=== PATIENT | male | born 1955 | race Caucasian/White ===

== ENCOUNTER 2024-03-03 20:19 | Emergency (ER) | payer OTHER, SELFPAY ==
[2024-03-03] VITALS (24 sets, daily range): BP systolic 118–147; BP diastolic 61–71; PULSE 57–78; RESP 12–28; TEMP 37.3; O2SAT 82–100
[2024-03-03 21:48] LABS: Abs Immature Grans 0.03 10^3/uL (0.0-0.06); Absolute Basophil Count 0.03 10^3/uL (0.0-0.2); Absolute Eosinophil Count 0.12 10^3/uL (0.0-0.7); Absolute Lymphocyte Count 1.05 10^3/uL (1.2-3.4); Basophils % 0.3 %; Eosinophils % 1.3 %; HCT 42.2 % (40.0-50.0); HGB 14.6 g/dL (13.5-17.5); Immature Grans % 0.3 %; Lymphocytes % 11.5 %; MCH 30.5 pg (27.0-33.0); MCHC 34.6 % (32.0-36.0); MCV 88 fL (80-95); MPV 9.8 fL (8.0-11.0); Monocytes % 7.7 %; Neutrophils % 78.9 %; Platelet Count 192 10^3/uL (130-400); RBC 4.79 10^6/uL (4.36-5.78); RDW 12.7 % (11.8-14.1); RDW-SD 41.3 fL; WBC 9.13 10^3/uL (4.4-10.8)
[2024-03-03 22:02] LABS: Anion Gap 9.9 mmol/L (3-11); BUN 17 mg/dL (7-18); CO2 27.1 mmol/L (21.0-32.0); CREATININE 0.8 mg/dL (0.70-1.30); Calcium 8.7 mg/dL (8.5-10.1); Chloride 104 mmol/L (98-107); Glucose 117 mg/dL (74-106); Potassium 3.9 mmol/L (3.5-5.1); Sodium 141 mmol/L (136-145)
--- NOTE | 2024-03-03 22:15 | ED.GENADUL_ITS ---
Discharge Plan Disposition Patient Disposition: Home Discharge Details Clinical Impression: Surgical site infection Primary Care Provider: Doug Ibanez ED Provider: Pinky Moss Home Meds and New Rx's Prescriptions: Continued aspirin 325 MG tablet 325 mg PO QAM clonazepam 1 MG tablet 1 mg PO QID Hold Instructions: patient was weaned off medication atenolol [Tenormin] 25 MG tablet 25 mg PO BID simvastatin 40 MG tablet 40 mg PO QAM multivitamin 1 EACH capsule 1 tab PO QAM Refresh Optive Advanced 10 ML drops ONCE PRN alprazolam [Xanax] 0.25 mg tablet 0.25 mg PO BID-TID PRN Discharge Instructions Additional Instructions: Please follow-up with your doctor as scheduled on . I have prescribed an antibiotic called cephalexin. Please take the full course as prescribed. Return to emergency care if you develop fevers after 48 hours of antibiotics, worsening redness/swelling/pain to the surgical site, body aches, or if you are very worried and need to be rechecked again immediately HPI General Date/Time Provider Initiated Documentation: 03/03/24 20:40 . HPI Narrative: Ezio is a 68-year-old male with history of PTSD with dissociative episodes and hyperlipidemia who presents to the emergency department today for evaluation of fever. He reports that this afternoon he came inside for few hours after being outside all morning/early afternoon. He had shaking chills and was noted to have a slightly elevated temperature of 99 degrees. He was given 2 extra strength Tylenol. He had a dissociative episode (normal presentation for him with return to normal cognition afterwards), followed by fever of 102 temporal. He denies recent illness such as headache, congestion, sore throat, ear pain, cough, chest pain, shortness of breath, nausea/vomiting, abdominal pain, change in bowel or bladder function, dysuria. He did have a lipoma removed from his left chest wall on March 14 at the OR. Today they noticed it was reddened and warm, which he initially attributed to being outside. Denies immunocompromise or diabetes. NO recent hospitalizations. Physical exam remarkable for erythema and warmth surrounding approximately 10 cm incision on left anterior chest wall. No tenderness to palpation. No drainage from surgical incision. Edges are well-approximated. Patient is well- appearing, in no acute distress. Easy work of breathing, lung sounds clear bilaterally. Normal heart sounds. Abdomen soft, nondistended, nontender to palpation. Normal gait. Moving all extremities equally. DDx includes but is not limited to surgical site infection, occult infection horton ch as UTI or pneumonia. I independently interpreted the following tests: CBC and BMP all reassuring. CRP slightly elevated at 0.60. While in the emergency department patient was started on cephalexin for surgical site infection. As patient is otherwise well-appearing, no red flags concerning for serious systemic illness at this time requiring inpatient management. Handoff report given to Dr. Harrington, lara attending. Related Data Home Medications Medication Instructions Recorded Confirmed aspirin 325 mg tablet 325 mg PO QAM 02/24/15 03/03/24 atenolol 25 mg tablet (Tenormin) 25 mg PO BID 02/24/15 03/03/24 [id number] ONCE PRN 02/24/15 02/24/15 80 0.5 %-1 %-0.5 % eye drops (Refresh Optive Advanced) clonazepam 1 mg tablet 1 mg PO QID 02/24/15 03/03/24 multivitamin 1 tab PO QAM 02/24/15 03/03/24 simvastatin 40 mg tablet 40 mg PO QAM 02/24/15 03/03/24 alprazolam 0.25 mg tablet (Xanax) 0.25 mg PO BID-TID PRN 03/03/24 03/03/24 Allergies Allergy/AdvReac Type Severity Reaction Status Date / Time onions AdvReac Severe rash, sores Uncoded 03/03/24 21:15 strawberries AdvReac Intermediate sores Uncoded 03/03/24 21:15 General Stated Complaint: GenMedical DOM: 3 Review of Systems Narrative: see HPI Exam Const General: cooperative, healthy appearing, comfortable and no acute distress Nutritional Appearance: average body habitus Chest Chest: other (10 cm surgical incision with surrounding erythema and warmth) Resp Effort & Inspection: normal respiratory effort and able to speak in complete sentences Auscultation: clear to auscultation bilaterally Cardio Rate: regular rate Rhythm: regular rhythm GI Inspection: normal to inspection and non-distended Palpation: soft and nontender Neuro General: gait normal, tone normal, moves all extremities and no focal motor deficits Cognition: normal cognition Course Vital Signs Vital signs: Vital Signs Temperature 37.3 C 03/03/24 20:29 Pulse 78 03/03/24 20:29 Respiratory Rate 16 03/03/24 20:29 Blood Pressure 147/71 H 03/03/24 20:29 Pulse Oximetry 98 03/03/24 20:29 Temperature 37.3 C 03/03/24 20:29 Pulse 78 03/03/24 20:29 Respiratory Rate 16 03/03/24 20:29 Respiratory Effort Normal, Non-Labored 03/03/24 21:06 Respiratory Depth Normal 03/03/24 21:06 Respiratory Pattern Normal 03/03/24 21:06 Blood Pressure 147/71 H 03/03/24 20:29 Pulse Oximetry 98 03/03/24 20:29 Pain Level 0 03/03/24 20:29 Lab/Test Results Lab/Test Results: Laboratory Tests Range/Units 03/03/24 21:40 WBC (4.4-10.8) 10^3/uL 9.13 RBC (4.36-5.78) 10^6/uL 4.79 Hgb (13.5-17.5) g/dL 14.6 Hct (40.0-50.0) % 42.2 MCV (80-95) fL 88 MCH (27.0-33.0) pg 30.5 MCHC (32.0-36.0) % 34.6 RDW (11.8-14.1) % 12.7 Plt Count (130-400) 10^3/uL 192 MPV (8.0-11.0) fL 9.8 Immature Gran % % 0.3 Neutrophils % % 78.9 Lymphocytes % % 11.5 Monocytes % % 7.7 Eosinophils % % 1.3 Basophils % % 0.3 Nucleated RBC % (0.0-0.3) % 0.0 Absolute Neutrophils (1.2-6.7) 10^3/uL 7.20 H Absolute Lymphocytes (1.2-3.4) 10^3/uL 1.05 L Absolute Monocytes (0.1-0.8) 10^3/uL 0.70 Absolute Eosinophils (0.0-0.7) 10^3/uL 0.12 Absolute Basophils (0.0-0.2) 10^3/uL 0.03 Sodium (136-145) mmol/L 141 Potassium (3.5-5.1) mmol/L 3.9 Chloride (98-107) mmol/L 104 Carbon Dioxide (21.0-32.0) mmol/L 27.1 Anion Gap (3-11) mmol/L 9.9 BUN (7-18) mg/dL 17 Creatinine (0.70-1.30) mg/dL 0.8 Est GFR (CKD-EPI 2020) (mL/min/1.73m2) 97.00 Glucose (74-106) mg/dL 117 H Calcium (8.5-10.1) mg/dL 8.7 C-Reactive Protein (<or=0.5) mg/dL 0.60 H Medical Decision Making Quality:SDOH Health Related Social Needs: No Data to Display PFSH All Active Problems (Updated 03/03/24 @ 23:36 by Pinky Laguerre) Surgical site infection (Acute) Social History Smoking/Tobacco Use Status: Former Tobacco Use Smoking risk assessment performed?: Yes Drug use: Never Housing: house
--- NOTE | 2024-03-03 23:00 | DI.RAD_ITS ---
Exam(s) XR CHEST 2V PA LATERAL EXAM: XR CHEST 2V PA LATERAL CLINICAL HISTORY: fever TECHNIQUE: 2D digital imaging was performed. Two views. COMPARISON: CR CHEST 2 VIEWS PA,LAT from 02/24/2015 FINDINGS: Leads overlie the chest. HEART: Normal size. Aorta: Not dilated. PULMONARY VASCULATURE: Normal. MEDIASTINUM: Unremarkable. LUNGS: Clear. PLEURAL SPACE: No pleural effusion or pneumothorax. BONE:Unremarkable degenerative changes in the spine. Mild scoliosis. SOFT TISSUES: Unremarkable. IMPRESSION: No acute abnormality. DATA REPOSITORY: RADIATION DOSE DELIVERED:
[2024-03-03 23:45] LABS: Bilirubin Negative (Negative); Blood Negative (Negative); Clarity Clear (Clear); Glucose Negative (Negative); Ketones Negative (Negative); Leukocyte Esterase Negative (Negative); Nitrite Negative (Negative); Urobilinogen 0.2 mg/dL (Up to 0.2); pH 5.5 (5-8)
[2024-03-03] MEDS: Cephalexin 250 MG CAP 500 MG PO (23:53)
--- NOTE | 2024-03-03 23:59 | NUR.NOTE ---
referral to PCP Doug Ibanez at the [facility] for surgical site infection. recommended within 1-2 weeks Nursing Note:
[2024-03-04 00:09] VITALS: BP 117/65; PULSE 62; PULSE 65; RESP 12; RESP 13; TEMP 37.1; O2SAT 97; O2SAT 98
--- NOTE | 2024-03-04 00:51 | DI.VRAD_ITS ---
PROCEDURE INFORMATION: Exam: XR Chest Exam date and time: 03/03/2024 11:41 PM Age: 68 years old Clinical indication: Fever TECHNIQUE: Imaging protocol: Radiologic exam of the chest. Views: 2 views. COMPARISON: No relevant prior studies available. FINDINGS: Lungs: Unremarkable. No consolidation. Pleural spaces: Unremarkable. No pleural effusion. No pneumothorax. Heart/Mediastinum: Unremarkable. No cardiomegaly. Bones/joints: Unremarkable. IMPRESSION: No evidence for acute abnormality in the chest. Dictated and Authenticated by: Isabel Mitchell MD. Ordering:JEWEL Vance MD
--- NOTE | 2024-03-04 04:32 | NUR.NOTE ---
[facility].Nursing Note:
== END 2024-03-04 00:19 | disposition home or self-care (01) ==
PROVIDERS: Nurse Practitioner Family; Emergency Provider Emergency Medicine; PCP Internal Medicine Geriatric Medicine
DX: R50.9 Fever, unspecified (principal); T81.49XA Infection following a procedure, other surgical site, initial encounter
CPT/HCPCS: 80048; 99283; 71046; 81003; 85025; 86140

== ENCOUNTER 2025-05-11 13:51 | Emergency (ER) | payer OTHER, SELFPAY ==
[2025-05-11 13:57] VITALS: BP 132/85; PULSE 60; RESP 16; TEMP 36.2; O2SAT 97
--- NOTE | 2025-05-11 14:09 | W.ED.GENAD ---
Discharge Plan Disposition Patient Disposition: Home Condition: Stable Discharge Details Clinical Impression: Fall, Contusion of hip, left, Lumbar contusion, Blunt head trauma Primary Care Provider: Doug Ibanez ED Provider: Gagan Friedman Home Meds and New Rx's Prescriptions: Continued aspirin 325 MG tablet 325 mg PO QAM clonazepam 1 MG tablet 1 mg PO QID atenolol [Tenormin] 25 MG tablet 25 mg PO BID simvastatin 40 MG tablet 40 mg PO QAM multivitamin 1 EACH capsule 1 tab PO QAM Refresh Optive Advanced 10 ML drops ONCE PRN alprazolam [Xanax] 0.25 mg tablet 0.25 mg PO BID-TID PRN No Action cephalexin 500 mg capsule 500 mg PO TID Qty: 20 0RF Discharge Instructions Additional Instructions: Your CAT scans did not show any broken bones or other concerning findings at this time. Bone contusions can take a few weeks to fully heal. If you are not improving follow-up with your primary care provider. If you feel significantly more ill or have new symptoms such as severe abdominal pain return to the emergency department for reevaluation. HPI General Date/Time Provider Initiated Documentation: 05/11/25 14:02. Limitations to Documentation: no limitations. Information obtained by: patient. History of Present Illness 70 year old M presents to the emergency department with the chief complaint of fall, head/lowerback/left hip pain, described as moderate, Quality is described as aching, and is localized to the head and back. Patient started experiencing this hour(s) (3) and it has been constant. No relieving factors improve symptom(s), No exacerbating factors reported . Patient notes no other symptoms.. Related Data Home Medications ?Medication ?Instructions ?Recorded ?Confirmed aspirin 325 mg tablet 325 mg PO QAM 02/24/15 05/11/25 atenolol 25 mg tablet (Tenormin) 25 mg PO BID 02/24/15 05/11/25 [id number]-dyhejrri-[id number] ONCE PRN 02/24/15 02/24/15 80 0.5 %-1 %-0.5 % eye drops (Refresh Optive Advanced) clonazepam 1 mg tablet 1 mg PO QID 02/24/15 05/11/25 multivitamin 1 tab PO QAM 02/24/15 05/11/25 simvastatin 40 mg tablet 40 mg PO QAM 02/24/15 05/11/25 alprazolam 0.25 mg tablet (Xanax) 0.25 mg PO BID-TID PRN 03/03/24 05/11/25 cephalexin 500 mg capsule 500 mg PO TID #20 caps 03/03/24 05/11/25 Previous Rx's ?Medication ?Instructions ?Recorded cephalexin 500 mg capsule 500 mg PO TID #20 caps 03/03/24 Allergies Allergy/AdvReac Type Severity Reaction Status Date / Time onions AdvReac Severe rash, sores Uncoded 05/11/25 14:01 strawberries AdvReac Intermediate sores Uncoded 05/11/25 14:01 General Stated Complaint: Trauma DOM: 3 Review of Systems All systems reviewed & are unremarkable except as noted in HPI and below Constitutional Constitutional: Denies chills, Denies fever(s) and Denies weakness Cardiovascular Cardiovascular: Denies chest pain and Denies dyspnea Respiratory Respiratory: Denies cough and Denies dyspnea Gastrointestinal Gastrointestinal: Denies abdominal pain, Denies nausea and Denies vomiting Neurologic Neurologic: Denies weakness Exam Const General: no acute distress Orientation: alert [facility] Head: no palpable skull fracture and signs of trauma Ears: external ears normal General nose exam: external nose normal Mouth: moist mucous membranes Eyes General: appearance normal, both eyes and all related structures Neck Neck: normal visual inspection and nontender Chest Chest: no tenderness Resp Effort & Inspection: normal respiratory effort and able to speak in complete sentences Cardio Rate: regular rate GI Palpation: soft and nontender Back/Spine/Pelvis Back: no CVA tenderness Thoracic/Lumbar Spine: No thoracic spinal tenderness and lumbar spinal tenderness Skin General skin exam: no rashes or lesions noted Neuro General: patient alert and patient oriented x3 Extrem General: full ROM Psych Mental Status: mental status grossly normal Course Vital Signs Vital signs: Vital Signs Temperature 36.2 C L 05/11/25 13:57 Pulse 60 05/11/25 13:57 Respiratory Rate 16 05/11/25 13:57 Blood Pressure 132/85 05/11/25 13:57 Pulse Oximetry 97 05/11/25 13:57 Temperature 36.2 C L 05/11/25 13:57 Pulse 60 05/11/25 13:57 Respiratory Rate 16 05/11/25 13:57 Blood Pressure 132/85 05/11/25 13:57 Pulse Oximetry 97 05/11/25 13:57 Oxygen Delivery Method Room Air 05/11/25 13:57 Oxygen Flow Rate 0 05/11/25 13:57 Medical Decision Making 70-year-old male comes in after a fall around 11 AM this morning. He says he was on some stairs in his garage when one of the steps moved causing him to fall back and hit his head on the sidewall and fall landing on his back approximately 6 feet. He has not had any vomiting, no chest pain or difficulty breathing. Denies any preceding symptoms to the fall such as dizziness or lightheadedness. He has a scalp hematoma in the posterior part of his head, no other signs of trauma to the head, GCS of 15 on arrival. He has no neck tenderness, no thoracic spine tenderness, he is tender over L4 and L5 with no visible palpable deformities. He also notes a left hip pain and when the left hip is palpated he has tenderness. He is able to fully range the hip. no other pain in his extremities. No chest or abdomen tenderness. Given his age and the fall and will obtain a CT head and C-spine as well as a CT pelvis lumbar spine. Patient stable, all CAT scans on my read and also radiology read shows no acute findings. He has no new pain elsewhere. Suspect bone contusions and a scalp hematoma. He is stable for discharge and will follow-up with his PCP if needed and return precautions given Differential Diagnosis Differential Diagnosis: Fracture, contusion, TBI [facility] All Active Problems (Updated 05/11/25 @ 15:39 by Gagan Friedman MD) Blunt head trauma (Acute) Lumbar contusion (Acute) Contusion of hip, left (Acute) Fall (Acute) Social History Smoking/Tobacco Use Status: Former Tobacco Use Smoking risk assessment performed?: Yes Drug use: Never Housing: house
[2025-05-11] MEDS: Acetaminophen 500 MG TAB 1000 MG PO (14:18)
--- NOTE | 2025-05-11 14:30 | DI.CT_ITS ---
Exam(s) CT LUMBAR SPINE WO EXAM: CT LUMBAR SPINE WO CLINICAL HISTORY: lower back pain s/p fall. TECHNIQUE: Imaging Protocol: Axial computed tomography images with coronal and sagittal reformatted images were created and reviewed. COMPARISON: No exams were available for comparison FINDINGS: Bones: No fractures or dislocations are seen. The alignment of the spine is normal including the thoracolumbar junction. Age-appropriate degenerative changes are present throughout the lumbar spine. Soft tissues: The soft tissues of the visualized abdomen and chest are unremarkable. No large disk herniations are identified. IMPRESSION: No acute fracture or subluxation in the lumbar spine. RADIATION DOSE DELIVERED: Total DLP Total DLP DATA REPOSITORY: All CT scans at this facility are submitted to the National Radiology Data Registry (NRDR) Dose Index Registry (DIR) with the [employer] ([employer]). RADIATION OPTIMIZATION: All CT scans at this facility use at least one of these dose optimization techniques: automated exposure control; mA and/or kV adjustment per patient size (includes targeted exams where dose is matched to clinical indication); or iterative reconstruction.
--- NOTE | 2025-05-11 14:35 | DI.CT_ITS ---
Exam(s) CT HEAD CERVICAL SPINE WO EXAM: CT HEAD CERVICAL SPINE WO CLINICAL HISTORY: pain s/p fall. TECHNIQUE: Imaging Protocol: Axial computed tomography images with coronal and sagittal reformatted images were created and reviewed COMPARISON: No exams were available for comparison FINDINGS: Head CT Ventricles and Extra axial spaces: Normal in size and morphology for the patient's age. Hemorrhage: None. Cerebral parenchyma: No evidence of mass or acute infarct. Midline shift: None. Brainstem/Cerebellum: Normal. Calvarium: Normal. Visualized Paranasal sinuses/Mastoids: Clear. Soft tissues: Unremarkable. Cervical Spine CT BONES: Vertebral body heights are maintained. Alignment is normal. There is no evidence of acute fracture. Mild degenerative disc changes and facet degenerative changes are seen . SOFT TISSUES: No paraspinal hematoma. The airway appears intact. No pneumothorax is seen at the lung apices. IMPRESSION: Head CT: No acute abnormality. C-spine CT: Mild degenerative changes, no acute abnormality. RADIATION DOSE DELIVERED: 1,327.46mGy.cm Total DLP DATA REPOSITORY: All CT scans at this facility are submitted to the National Radiology Data Registry (NRDR) Dose Index Registry (DIR) with the [employer] (ACR). RADIATION OPTIMIZATION: All CT scans at this facility use at least one of these dose optimization techniques: automated exposure control; mA and/or kV adjustment per patient size (includes targeted exams where dose is matched to clinical indication); or iterative reconstruction.
--- NOTE | 2025-05-11 14:40 | DI.CT_ITS ---
Exam(s) CT PELVIC WO EXAM: CT PELVIC WO CLINICAL HISTORY: left sided hip pain s/p fall. TECHNIQUE: Imaging Protocol: Axial computed tomography images with coronal and sagittal reformatted images were created and reviewed. COMPARISON: CT CT LUMBAR SPINE WO from 05/11/2025 FINDINGS: Bones: The osseous structures and articular surfaces are intact. Bony alignment is satisfactory. No cellulitic or osteomyelitic changes are identified. There are degenerative changes seen in the lower lumbar spine in the hips bilaterally. No lytic or sclerotic lesions are identified. Soft Tissues: The bowel is unremarkable. There is a normal appendix. The urinary bladder is unremarkable as is the prostate gland. There are small fat containing bilateral inguinal hernias. Atherosclerotic calcification is seen IMPRESSION: There is no acute fracture or dislocation. If there is continued concern for an occult fracture, an MRI may be obtained for further evaluation. RADIATION DOSE DELIVERED: 1,813.52mGy.cm Total DLP 1,813.52mGy.cmTotal DLP DATA REPOSITORY: All CT scans at this facility are submitted to the National Radiology Data Registry (NRDR) Dose Index Registry (DIR) with the [employer] (ACR). RADIATION OPTIMIZATION: All CT scans at this facility use at least one of these dose optimization techniques: automated exposure control; mA and/or kV adjustment per patient size (includes targeted exams where dose is matched to clinical indication); or iterative reconstruction.
[2025-05-11 15:58] VITALS: BP 132/85; PULSE 60; RESP 16; TEMP 36.2; O2SAT 97
== END 2025-05-11 16:00 | disposition home or self-care (01) ==
PROVIDERS: Emergency Provider Emergency Medicine; PCP Internal Medicine Geriatric Medicine
DX: S70.02XA Contusion of left hip, initial encounter (principal); S30.0XXA Contusion of lower back and pelvis, initial encounter; W19.XXXA Unspecified fall, initial encounter; S09.90XA Unspecified injury of head, initial encounter
CPT/HCPCS: 99284; 99283; 70450; 72125; 72131; 72192